=== PATIENT | male | born 2000 | race Caucasian/White ===

== ENCOUNTER 2024-03-21 01:38 | Emergency (ER) | payer BC, SELFPAY ==
[2024-03-21 01:38] VITALS: BMI 24.9
[2024-03-21 01:54] VITALS: BP 143/85; PULSE 96; RESP 17; TEMP 36.6; O2SAT 98
--- NOTE | 2024-03-21 02:07 | XR_ITS ---
Examination: CT abdomen and pelvis without contrast. Coronal 3-D reconstructions. Sagittal 2-D reconstructions. Date and time of exam:March 21, 2024 0252 hrs. Indications: Patient felt something pop in the abdomen followed by left lower abdomen pain beginning 2 hours ago CTDI: vol (mGy): 4.24 DLP: (mGycm): 20 Technique: Axial images of the abdomen have been obtained, 3 mm slice thickness Intravenous contrast material has not been administered. Low dose protocols were performed. One or more of the following dose reduction techniques were used; automated exposure control, adjustment of the mA and/or KV according to patient size, use of iterative reconstruction technique. Findings: No focal liver or splenic lesion Contracted gallbladder No pancreatic mass No renal or ureteral calculi, no hydronephrosis Aorta normal size No bowel obstruction No pericecal inflammatory change Moderate stool throughout the colon No pelvic mass Bladder intact Osseous structures intact Impression: No acute process in the abdomen or pelvis If symptoms persist, consider repeating this study with intravenous contrast
--- NOTE | 2024-03-21 03:40 | PRELIM_ITS ---
CT scan of the abdomen and pelvis without intravenous contrast (axial sections with sagittal and marcio nal reformats) March 21, 2024 0252 hours Clinical History: Abd pain Comparison: No prior study is available for comparison. Findings:The evaluation is slightly limited due to motion artifact. The antwan g bases are clear.The liver, gallbladder, pancreas, spleen, kidneys and adrenals are unremarkable on this noncontrast study.No evidence of bowel obstruction. A moderate amount of fecal material is prese nt in the colon. The appendix is not definitively visualized; however, there is no evidence of inflam matory process in the right lower quadrant to suggest appendicitis. There is no mesenteric or retrope ritoneal adenopathy.The urinary bladder is unremarkable. There is no free fluid or free air.The osseo us structures are unremarkable.Impression:No evidence of bowel obstruction, free air or fluid collect ion (slightly motion limited evaluation) . Report Electronically Signed By: William Brian 03/21/2024 3 :40:02 AM [EST]
[2024-03-21 03:54] VITALS: BP 127/64; PULSE 78; RESP 19; TEMP 36.6; O2SAT 99
--- NOTE | 2024-03-21 04:07 | EDNOTE_ITS ---
ED Abdominal Pain RME/HPI General Chief Complaint: Abdominal Pain Stated complaint: LLQ PAIN; FELT SOMETHING POP . Time seen by provider: 03/21/24 02:02 Arrival date/time: 03/21/24 01:38 RME / HPI RME / HPI narrative: This section includes all my notes and documentations, including HPI, PE, and ED course. Rubens Weston MD HPI: 23-year-old male here with several months of abdominal pain. Has trouble localizing the pain. Has difficulty describing the quality and quantity of the pain. Uncertain about exacerbating factors or relieving factors. No vomiting or diarrhea. No fever. No history of abdominal surgery. No urinary symptoms. No other complaints. ROS: Gastrointestinal: negative except as documented in HPI. Genitourinary: negative except as documented in HPI. Musculoskeletal: negative except as documented in HPI. Skin: negative except as documented in HPI. Neurological: negative except as documented in HPI. Physical Exam: General: Alert and oriented. No acute distress. Eyes: Conjunctivae and lids clear. Lungs: No respiratory distress. Abdomen: Soft with equivocal tenderness, difficult to localize. Normal bowel sounds. No distension. No rebound or guarding. Back: No CVA tenderness. Skin: Warm and dry. Neuro: Alert and oriented X 3. I reviewed all diagnostic test results. My review of the abdominal CT report is no acute findings. Patient declined blood and urine test. At this point, diagnoses include abdominal pain of unclear etiology. Recommended more outpatient workup. Based on my best medical judgment, made decision no further evaluation or treatment indicated at this time. Patient understands and agrees to the discharge instructions customized and printed, see below. Discharge instructions from Dr. Weston: 1. Your abdominal scan was normal, showing no emergency such as appendicitis needing urgent surgery. 2. But since you declined full diagnostic tests, including blood tests, full evaluation not performed. 3. See a private doctor on 03/22/2024 to help you find a cause and treatment of your abdominal pain. To make sure there is no serious intra-abdominal condition, ask for help with more investigation not available here in the ER. Such as EGD or scoping the stomach, colonoscopy or scoping the colon, and referral to see restaurant area director. 4. Seek immediate medical care with worsening or with any concerns. Rubens Weston MD Related Data Allergies Allergy/AdvReac Type Severity Reaction Status Date / Time No Known Allergies Allergy Verified 08/05/21 02:37 Course Quality Measures none Orders Category Date Time Status CT abdomen pelvis wo con Stat Exams 03/21/24 02:07 Taken Amylase Stat Lab 03/21/24 02:08 Ordered CBC Stat Lab 03/21/24 02:08 Ordered CMP [Comprehensive Metabolic Panel] Stat Lab 03/21/24 02:08 Ordered Lipase Stat Lab 03/21/24 02:08 Ordered Magnesium Stat Lab 03/21/24 02:08 Ordered Vital Signs Vital signs: Vital Signs Temperature 97.8 F 03/21/24 01:54 Pulse Rate 96 03/21/24 01:54 Respiratory Rate 17 03/21/24 01:54 Blood Pressure 143/85 H 03/21/24 01:54 Pulse Oximetry (%) 98 03/21/24 01:54 Oxygen Delivery Method Room Air 03/21/24 01:54 Abdominal Pain MDM Patient data External records reviewed:: None Clinical information provided by:: patient Social determinants that could affect healthcare access:: none Patient has the following chronic illnesses:: None How is presenting disease/condition affected by chronic disease/condition?: no chronic disease Evaluation data The following diagnostics were reviewed and interpreted by me:: radiology exam(s) Lab and/or radiology exams considered but not ordered:: Blood tests and urine tests (patient declined) Interpretation Summary: Negative abdominal CT Medications / Prescriptions Medications or Prescriptions considered but not ordered:: None Medication administrations:: None Consultations Consultation(s) initiated? (list below): No Diagnosis Differential diagnosis abdominal pain: acute appendicitis, calculus of kidney, constipation, diverticulitis, gastroenteritis, pancreatitis and small bowel obstruction Most likely diagnosis given after review of the tests above:: No abdominal pain etiology Admission Indicated Admission indicated?: not indicated Explain why admission is indicated or not indicated:: No admission criteria Admission Request Was there a request for admission?: No Disposition Plan Disposition Plan: Discharge Discharge Attestation Discharge Attestation: The patient and all family members were given an opportunity to ask questions and understood the discharge instructions. Discharge instructions specifically effects, indications for sooner follow up or return to the emergency department, and the expected course of current diagnosis. Patient condition: Stable Discharge Plan Plan Patient Disposition: HOME (Self Care) Prescriptions/Referrals Referrals: Adebayo Burch MD [Primary Care Provider] - In 1 week Problem List Clinical Impression: Abdominal pain Patient/Caregiver Discharge Instructions Discharge Activity: activity as tolerated Education Materials: Abdominal Pain Additional Instructions: Discharge instructions from Dr. Weston: 1. Your abdominal scan was normal, showing no emergency such as appendicitis needing urgent surgery. 2. But since you declined full diagnostic tests, including blood tests, full evaluation not performed. 3. See a private doctor on 03/22/2024 to help you find a cause and treatment of your abdominal pain. To make sure there is no serious intra-abdominal condition, ask for help with more investigation not available here in the ER. Such as EGD or scoping the stomach, colonoscopy or scoping the colon, and referral to see restaurant area director. 4. Seek immediate medical care with worsening or with any concerns. Print Language: Frisian Stand Alone Forms: Yu Award Info., Patient Portal Info Letter
== END 2024-03-21 03:54 | disposition home or self-care (01) ==
PROVIDERS: Emergency Provider Emergency Medicine; PCP Family Medicine
DX: R10.32 Left lower quadrant pain (principal)
CPT/HCPCS: 74176; 80053; 82150; 83690; 83735; 85025; 99284